=== PATIENT | male | born 1950 | race Caucasian/White ===

== ENCOUNTER 2017-06-05 09:24 | Outpatient (CLI) | payer OTHER ==
[2013-07-16 13:11] VITALS: BP 128/78
[2017-06-05 10:07] LABS: BASOPHILS % 0.4 (0.0-1.5); EOSINOPHILS % 2.4 % (0.0-6.8); MEAN CORPUSCULAR HEMOGLOBIN 31.4 pg (28.0-34.0); MEAN CORPUSCULAR VOLUME 92.1 fl (80.0-100.0); MONOCYTES % 4.8 % (0.0-11.0); NEUTROPHILS # 4.8 # k/uL (1.4-7.7)
== END 2017-06-05 09:26 ==
LOC: LAB 09:24
PROVIDERS: ATTEND Specialist
DX: L40.0 Psoriasis vulgaris (principal)
CPT/HCPCS: 36415; 85025